=== PATIENT | female | born 1940 | race Two or more races ===

== ENCOUNTER 2018-06-16 18:33 | Emergency (ER) | payer MEDICARE, OTHER ==
[~2018-06-16] VITALS: Ht 152.4 cm; Wt 50.0 kg
[2018-06-16 19:14] VITALS: Ht 152.4 cm; Wt 50.0 kg
[2018-06-16] MEDS ORDERED: IBUPROFEN 200 MG TAB PO ONE (20:00)
--- NOTE | 2018-06-16 20:01 | ERD ---
ER Documentation Chief Complaint Chief Complaint NICK from [facility],right ankle pain and swelling,no trauma HPI This is a 77-year-old female here for right ankle pain. Patient has had a remote surgery requiring a vein graft from the in her right ankle with a healing wound there. She is complaining of lateral malleolus pain with swelling there. The report from the care facility was that she had no trauma however the patient tells me she twisted her ankle. Pain is sharp and worse with movement better with rest no calf pain or shortness of breath ROS All systems reviewed and are negative except as per history of present illness. Allergies Allergies: Coded Allergies: No Known Drug Allergy (Verified Allergy, Unknown, 10/30/09) FmHx Family History: No coronary disease Physical Exam Vitals Vital Signs Date Temp Pulse Resp B/P (MAP) Pulse Ox O2 O2 Flow FiO2 Time Delivery Rate 06/16/18 98.5 79 18 147/70 95 19:14 (95) Physical Exam Const: Well-developed, well-nourished Head: Atraumatic, normocephalic Eyes: Normal Conjunctiva, PERRLA, EOMI, normal sclera, no nystagmus ENT: Normal External Ears, Nose and Mouth, moist mucus membranes. Neck: Full range of motion. No meningismus, no lymphadenopathy. Resp: Clear to auscultation bilaterally, no wheezing, rhonchi, rales Cardio: Regular rate and rhythm, no murmurs, S1 S2 present Abd: Soft, non tender x 4, non distended. Normal bowel sounds, no guarding or rebound, no pulsitile abdominal masses or bruits Skin: No petechiae or rashes, no ecchymosis , no maculopapular rash Back: No midline or flank tenderness Ext: No cyanosis, or edema, FROM x 4, normal inspection, neurovascularly intact x 4, there is a healing scab wound to the medial right ankle the lateral malleolus the right ankle is swollen with tenderness to palpation and tenderness with range of motion Neur: Awake and alert, STR 5/5 x 4, sensation intact x 4, no focal findings, cerebellum intact Psych: Normal Mood and Affect Results 24 hrs Current Medications Medications Dose Sig/Twan Start Time Status Last (Trade) Ordered Route PRN Stop Time Admin Dose Reason Admin Ibuprofen 400 mg ONCE ONCE 06/16/18 DC 06/16/18 (Motrin) PO 20:00 06/16/18 20:14 20:01 Procedures/MDM Patient: GRISEL GUERRERO : 1940 Age: 77 Sex: F MR #: [id number] DOS: 06/16/181958 Ordering MD: LIA JACOBO DO Location: E/R Room/Bed: PROCEDURE: Ultrasound examination of the right lower extremity with Doppler. CLINICAL INDICATION: Right leg pain and swelling. TECHNIQUE: Multiple sonographic images of the right lower extremity were performed with briceno scale and color Doppler. COMPARISON: None. FINDINGS: The right common femoral, superficial femoral and popliteal veins demonstrate normal color flow, waveforms, compression and response augmentation. There is no evidence of deep venous thrombosis. IMPRESSION: No evidence of deep venous thrombosis within the right lower extremity. .Smooth Villegas MD, MD Date Time Electronically viewed and signed by .Smooth Villegas MD, on 06/16/2018 20:40 .T/ CC: LIA JACOBO DO [id number] Ordering MD: LIA JACOBO DO Location: E/R Room/Bed: PROCEDURE: XR Right Ankle. CLINICAL INDICATION: Trauma. Pain. TECHNIQUE: Three views of the right ankle are available for review COMPARISON: None available FINDINGS: There are no acute fractures. There is a metal plate with multiple transcortical screws transfixing old fracture of distal tibia. There is deformity of distal fibular diaphysis compatible with an old fracture. Joint relationships are maintained. Ankle mortise is intact. Bones are osteopenic. Soft tissues are unremarkable. IMPRESSION: 1. No acute fracture. 2. Status post ORIF of an old fracture of the distal tibia. 3. Deformity consistent with an old fracture of the distal fibular diaphysis. RPTAT: HMVK .Palmer Eduardo MD, Date Time Electronically viewed and signed by .Palmer Eduardo MD, MD on 06/16/2018 20:24 .K/ CC: LIA JACOBO DO [id number] Patient has sprained her ankle and no evidence of fracture she does have a prior ORIF of the right ankle but no evidence of disruption. No evidence of DVT. We will place a posterior ankle splint and discharged home Splint Assessment: Neurovascularly intact post splint placement with good fit. Departure Diagnosis: Primary Impression: Ankle injury Encounter type: initial encounter Laterality: right Qualified Codes: S99.911A - Unspecified injury of right ankle, initial encounter Condition: Stable LIA JACOBO DO Jun 16, 2018 20:01
[2018-06-16] MEDS ORDERED: IBUP-1561 PO (20:58)
[2018-06-16] MEDS ORDERED: TRAM50TA2 PO (20:58)
[2018-06-17 00:32] VITALS: BP 140/72; PULSE 76; RESP 18
[2018-07-03] MEDS ORDERED: LORA10CA PO (14:01)
[2018-07-03] MEDS ORDERED: DOCU-144 PO (14:02)
[2018-07-03] MEDS ORDERED: MTF1000T PO (14:02)
[2018-07-03] MEDS ORDERED: REPA2TAB23 PO (14:03)
[2018-07-03] MEDS ORDERED: MULT-542 PO (14:03)
[2018-07-03] MEDS ORDERED: HYDR-4011 PO (14:03)
[2018-07-03] MEDS ORDERED: GUAI5SYR2 PO (14:04)
[2018-07-03] MEDS ORDERED: LINA5TAB PO (14:04)
[2018-07-12] MEDS ORDERED: PRED20TA PO (13:41)
== END 2018-06-17 00:35 | disposition home or self-care (01) ==
LOC: E/R 18:33
DX: S99.911A Unspecified injury of right ankle, initial encounter (principal); X58.XXXA Exposure to other specified factors, initial encounter; Y92.9 Unspecified place or not applicable
CPT/HCPCS: 80048; 93971